=== PATIENT | male | born 1995 | race Caucasian/White ===

== ENCOUNTER 2017-10-04 12:15 | Emergency (ER) | payer BC, SELFPAY ==
[2017-10-04 13:11] LABS: Bilirubin Negative (Negative); Blood, Urine Negative (Negative); Clarity CLEAR (Clear); Glucose, Urine (Dipstick) Negative (Negative); Leukocyte Negative (Negative); Nitrite Negative (Negative); Protein, Urine (Dipstick) Negative (Neg-Trace); Specific Gravity, Urine 1.025 (1.002-1.036); Urobilinogen 0.2 mg/dL (0.2-1.0)
[2017-10-04] MEDS ORDERED: cefTRIAXone\\ROCEPHIN 250 MG VIAL ONE (13:19)
[2017-10-04] MEDS ORDERED: Lidocaine 1% (PF) 30 ML VIAL ONE (13:19)
[2017-10-04] MEDS ORDERED: Azithromycin 250 MG TAB ONE ×2 (13:19→13:24)
[2017-10-05 22:52] LABS: Chlamydia by PCR Not Detected (NotDetected); GC by PCR Not Detected (NotDetected)
== END 2017-10-04 12:45 | disposition home or self-care (01) ==
LOC: ERS 12:15
DX: R30.0 Dysuria (principal); G40.909 Epilepsy, unspecified, not intractable, without status epilepticus; F41.9 Anxiety disorder, unspecified; F32.9 Major depressive disorder, single episode, unspecified; F25.9 Schizoaffective disorder, unspecified; F17.210 Nicotine dependence, cigarettes, uncomplicated
CPT/HCPCS: 81003; 87491; 87591; 96372; J0696; J2001